=== PATIENT | male | born 1930 | race Caucasian/White ===

== ENCOUNTER 2018-11-26 16:11 | Emergency (ER) | payer OTHER, BC ==
--- NOTE | 2018-11-26 17:21 | EDPHY ---
H & P Stated Complaint: leg swelling, sent from urgent care Time Seen by Provider: 11/26/18 17:00 HPI/ROS: Chief complaint: Right leg swelling, sent from urgent care History of present illness: Mr. Harden is an 88-year-old male with significant dementia who was sent from urgent care for evaluation of right leg swelling. He is accompanied by his who is at bedside. Patient is a poor historian, he is not able to give me any significant details about his history. His reports that she noticed the onset of swelling yesterday. No report of precipitating events such as injury. No reported associated signs or symptoms such as evidence of chest discomfort, trouble breathing, cough. Review of systems: Unable to obtain given patient's mental status - Personal History Current Tetanus Diphtheria and Acellular Pertussis (TDAP): Yes - Medical/Surgical History Hx Asthma: No Hx Chronic Respiratory Disease: No Hx Diabetes: No Hx Cardiac Disease: Yes Hx Renal Disease: No Hx Cirrhosis: No Hx Alcoholism: No Hx HIV/AIDS: No Hx Splenectomy or Spleen Trauma: No Other PMH: pacemaker, heart stents, CABG 3 vessel, vascectomy, prostate cancer with prostate surgery, dementia, niddm, htn - Social History Smoking Status: Former smoker - Physical Exam Exam: General Appearance: Alert and no distress. Eyes: Pupils equal and round no injection. Respiratory: Chest is non tender, lungs are clear to auscultation. Cardiovascular: Regular rate and rhythm. DP and PT pulses 2+. Gastrointestinal: Abdomen is soft and non tender, no masses, bowel sounds normal. Musculoskeletal: The right leg is mildly edematous as compared to the left. There is no pitting edema. Skin: No rashes or lesions. Constitutional: Initial Vital Signs Temperature (C) 37.1 C 11/26/18 16:29 Heart Rate 69 11/26/18 16:29 Respiratory Rate 18 11/26/18 16:29 Blood Pressure 138/87 H 11/26/18 16:29 O2 Sat (%) 94 11/26/18 16:29 O2 Delivery Mode Room Air Allergies/Adverse Reactions: donepezil HCl [From Aricept] Allergy (Unknown, Verified 11/26/18 16:25) amlodipine Allergy (Verified 11/26/18 16:25) feldine Allergy (Unknown, Uncoded 03/23/19 16:25) Home Medications: Medication Instructions Recorded Aspirin [Aspirin 81mg (*)] 81 mg PO HS 07/06/12 Atorvastatin Calcium [Lipitor 10 10 mg PO HS 07/06/12 mg (*)] Memantine HCl [Namenda 5 mg (*)] 5 mg PO BID 07/06/12 Metoprolol Succinate Xr [Toprol Xl 25 mg PO HS 07/06/12 25 mg (*)] Ascorbic Acid [Vitamin C 500 mg 1,000 mg PO DAILY 06/18/15 (*)] Calcium Carbonate/Vitamin D3 1 each PO DAILY 06/18/15 [Calcium 600 + D Tablet] Herbals/Supplements -Info Only 1 ea PO DAILY 06/18/15 Metformin HCl [Metformin 1000 mg] 1,000 mg PO BIDMEAL 06/18/15 Multivitamins [Multivitamin (*)] 1 each PO DAILY 06/18/15 Valsartan [Diovan] 320 mg PO HS 06/18/15 Albuterol [Proventil Inhaler HFA 2 puffs IH Q4 PRN #1 mdi 06/21/15 (*)] Ipratropium/Albuterol [Combivent 1 inh IH QID #1 mdi 06/21/15 Respimat Inhal [place](*)] guaiFENesin [Mucinex 600 MG (*)] 1,200 mg PO BID #20 tab.er 06/21/15 predniSONE 40 mg PO DAILY #3 tablet 06/21/15 levOFLOXACIN 750 mg PO DAILY #3 tab 06/22/15 Medical Decision Making - Diagnostics Imaging Results: Imaging Impressions Extremity Venous Study 11/26/18 17:03 Impression: No deep venous thrombosis in the right lower extremity. Findings discussed with Dr. Brandon Mauro for CHEYANNE Gomez at 18:31 hour, 2018. Imaging: Discussed imaging studies w/ call or contact centre operator Radiologist ED Course/Re-evaluation: Patient is discussed with my secondary supervising physician Dr. Brandon Mauro. Patient presents to the emergency department with right leg edema. The leg is neurovascularly intact. Left leg and the rest of the physical exam unremarkable. Ultrasound is negative for DVT. I discussed symptomatic care at home with the family including elevation of the leg and gentle ambulation. They are to follow up with patient's primary care doctor on Wednesday for recheck. I discussed if symptoms worsen or new symptoms develop they are to return immediately to the emergency room. Differential Diagnosis: Included but not limited to DVT, superficial thrombophlebitis, dependent edema, doubtful this is a systemic issue such as heart, kidney or liver given the isolated right leg involvement Departure - Departure Disposition: Home, Routine, Self-Care Clinical Impression: Right leg swelling Condition: Good Instructions: Leg Edema (ED) Additional Instructions: Follow-up with your primary care doctor on Wednesday for recheck without fail Elevate the leg as much as possible over the next 1-2 days If symptoms worsen or new symptoms develop return to the emergency room for recheck Referrals: Vaishali Peña MD [Primary Care Provider] - As per Instructions
[2018-11-26 18:54] VITALS: BP 136/84
== END 2018-11-26 18:54 | disposition home or self-care (01) ==
DX: R60.0 Localized edema (principal); I10 Essential (primary) hypertension

== ENCOUNTER → 2018-11-30 | Outpatient (CLI) | payer OTHER, BC | LOC: BHCLAF 14:00 | PROVIDERS: ATTEND Internal Medicine Cardiovascular Disease | DX: R60.9 Edema, unspecified (principal) | CPT/HCPCS: 93306-PO ==